=== PATIENT | female | born 1965 | race Two or more races ===

== ENCOUNTER 2020-11-23 01:11 | Emergency (ER) | payer SELFPAY ==
[~2020-11-23] VITALS: Ht 172.7 cm; Wt 81.6 kg
[2020-11-23 01:13] VITALS: BP 175/67
== END 2020-11-23 02:32 | disposition left against medical advice (07) ==
LOC: ER 01:14
DX: R10.9 Unspecified abdominal pain (principal); M54.9 Dorsalgia, unspecified; R11.0 Nausea; K59.00 Constipation, unspecified; Z53.21 Procedure and treatment not carried out due to patient leaving prior to being seen by health care provider

== ENCOUNTER 2022-02-15 12:41 | Emergency (ER) | payer OTHER ==
[~2022-02-15] VITALS: Ht 172.7 cm; Wt 86.3 kg
[~2022-02-15 12:41] MED LIST: ASPI1CHW15 PO; ATOR20TA50 PO; CLOP75TA28 PO; LISI-275 PO; MET25T PO
[2022-02-15] MEDS ORDERED: OXYMETAZOLINE HCL 0.05 % NASAL SPRAY 15ML EACHNOSTRI ONE (13:30)
[2022-02-15 13:49] LABS: Basophils # (auto) 0.1 10 ^3/uL (0-0.2); Basophils % (auto) 0.6 % (0.0-2.0); Eosinophils # (auto) 0.2 10 ^3/uL (0-0.8); Hematocrit 49.5 % (36.0-46.0); Hemoglobin 15.8 g/dL (12.2-16.2); Lymphocytes % (auto) 17.1 % (10.0-50.0); Mean Corpuscular Hgb Conc. 31.8 g/dL (32.0-36.0); Mean Corpuscular Volume 91.1 fL (80.0-100.0); Monocytes # (auto) 0.7 10 ^3/uL (0-1.3); Monocytes % (auto) 5.6 % (0.0-12.0); Neutrophils # (auto) 8.7 10 ^3/uL (1.6-8.6); Neutrophils % (auto) 74.7 % (37.0-80.0); Red Blood Cells 5.43 10^6/uL (4.0-5.20); Red Cell Distribution Width 14.6 % (11.8-14.3); White Blood Cell 11.6 10^3/uL (4.4-10.8)
[2022-02-15 14:09] LABS: BUN/Creatinine Ratio 24.2; Calcium 8.7 mg/dL (8.5-10.1); Potassium 4.3 mmol/L (3.5-5.1)
[2022-02-15 14:46] VITALS: BP 126/75
[2022-02-15] MEDS ORDERED: AMOX-277 PO (15:01)
== END 2022-02-15 14:55 | disposition home or self-care (01) ==
LOC: ER 12:41
DX: R04.0 Epistaxis (principal); H66.92 Otitis media, unspecified, left ear; I10 Essential (primary) hypertension; E78.5 Hyperlipidemia, unspecified; F17.210 Nicotine dependence, cigarettes, uncomplicated; Z98.61 Coronary angioplasty status; Z90.89 Acquired absence of other organs
CPT/HCPCS: 36415; 80048; 85025; 85610

== ENCOUNTER 2022-02-15 19:45 | Emergency (ER) | payer OTHER ==
[~2022-02-15 19:45] MED LIST changes: +AMOX-277 PO
== END 2022-02-15 22:03 | disposition left against medical advice (07) ==
LOC: ER 19:45
DX: R04.0 Epistaxis (principal); Z53.21 Procedure and treatment not carried out due to patient leaving prior to being seen by health care provider

== ENCOUNTER 2022-02-16 05:56 | Emergency (ER) | payer OTHER | END 2022-02-16 06:13 | disposition left against medical advice (07) | LOC: ER 05:56 | DX: R04.0 Epistaxis (principal); Z53.21 Procedure and treatment not carried out due to patient leaving prior to being seen by health care provider ==

== ENCOUNTER 2023-03-16 06:06 | Inpatient (IN) | payer BC, OTHER ==
[~2023-03-16] VITALS: Ht 172.7 cm; Wt 95.0 kg
[~2023-03-16 06:06] MED LIST changes: -AMOX-277 PO; +AMOX875T4 PO; +ASPI-736 PO; -ASPI1CHW15 PO
[2023-03-16 06:39] LABS: Basophils # (auto) 0 10 ^3/uL (0-0.2); Basophils % (auto) 0.3 % (0.0-2.0); Eosinophils # (auto) 0.2 10 ^3/uL (0-0.8); Eosinophils % (auto) 1.5 % (0.0-7.0); Hematocrit 51.8 % (36.0-46.0); Hemoglobin 17.1 g/dL (12.2-16.2); Lymphocytes # (auto) 1.8 10 ^3/uL (0.4-5.4); Lymphocytes % (auto) 13.6 % (10.0-50.0); Mean Corpuscular Hemoglobin 29.6 pg (28.0-32.0); Mean Corpuscular Volume 89.5 fL (80.0-100.0); Monocytes # (auto) 0.7 10 ^3/uL (0-1.3); Monocytes % (auto) 5.4 % (0.0-12.0); Neutrophils # (auto) 10.4 10 ^3/uL (1.6-8.6); Neutrophils % (auto) 79.2 % (37.0-80.0); Red Blood Cells 5.79 10^6/uL (4.0-5.20); Red Cell Distribution Width 14.5 % (11.8-14.3); White Blood Cell 13.1 10^3/uL (4.4-10.8)
[2023-03-16 06:43] LABS: INR 1.02 (0.9-1.15); Partial Thromboplastin Time 29.7 SEC (24.5-34.5); Prothrombin Time 10.7 sec (9.3-11.8)
[2023-03-16 06:57] LABS: Alanine Aminotransferase 18 U/L (7-40); Albumin 4.3 g/dL (3.2-4.8); Alkaline Phosphatase 140 U/L (46-116); Anion Gap 8.8 (5-15); Aspartate Aminotransferase < 8 U/L (13-40); BUN/Creatinine Ratio 17.7 (10.0-20.0); Blood Urea Nitrogen 14 mg/dL (9-23); Calcium 9.7 mg/dL (8.7-10.4); Carbon Dioxide 25.2 mmol/L (20-30); Chloride 105 mmol/L (98-107); Glucose 138 mg/dL (74-106); Magnesium 1.9 mg/dL (1.6-2.6); Potassium 3.8 mmol/L (3.5-5.1); Sodium 139 mmol/L (136-145)
[2023-03-16 06:58] LABS: Bilirubin, Total 0.4 mg/dL (0.2-1.0)
[2023-03-16] MEDS ORDERED: DICYCLOMINE HCL (10MG/ML) 2 ML AMPULE IM ONE (09:00)
[2023-03-16] MEDS ORDERED: ONDANSETRON ODT 4 MG TAB PO ONE (09:00)
[2023-03-16] MEDS ORDERED: KETOROLAC TROMETH 60MG/2ML VIAL IM ONE (09:00)
[2023-03-16] MEDS ORDERED: PIPERACILLIN-TAZO 4.5GM 100 ML IV ONE (09:30)
[2023-03-16 10:38] LABS: Urine Bacteria FEW /hpf (None Seen); Urine Blood 1+ /uL (Negative); Urine Clarity Clear (Clear); Urine Color Yellow (Yellow); Urine Protein, UAD TRACE (Negative); Urine Urobilinogen Normal (Negative); Urine WBC <1 /hpf (0 - 5); Urine pH 6.5 (5.0-8.0)
[2023-03-16] MEDS ORDERED: METOPROLOL SUCCINATE XL 50 MG TAB PO ONE (11:00)
[2023-03-16] MEDS ORDERED: ASPirin-EC 81 mg tab PO ONE (11:00)
[2023-03-16] MEDS ORDERED: LISINOPRIL 5 MG TAB PO ONE (11:00)
[2023-03-16] MEDS ORDERED: PANTOPRAZOLE 40 MG TAB PO ONE (11:00)
[2023-03-16] MEDS ORDERED: metroNIDAZOLE 500MG/100ML 100 ML IV ONE (11:00)
[2023-03-16] MEDS ORDERED: cefTRIAXone 1GM/50ML D5W 50 ML IV ONE (11:00)
[2023-03-16 11:08] VITALS: PULSE 54; RESP 12; O2SAT 97
[2023-03-16] MEDS ORDERED: ONDANSETRON HCL 4 MG/2 ML VIAL IV PRN (11:30)
[2023-03-16] MEDS: D5W/SOD CHL 0.45% 1,000 ML IV SCH (12:49)
[2023-03-16] MEDS: ACETAMINOPHEN 325 MG TAB PO PRN ×2 (15:01→20:25)
[2023-03-16] MEDS: metroNIDAZOLE 500MG/100ML 100 ML IV SCH ×2 (15:11→21:30)
[2023-03-16] MEDS ORDERED: ATOR20TA PO (19:17)
[2023-03-16 19:18] VITALS: BP_SYST 133; BP_SYST 139; BP_DIAS 69; PULSE 67; PULSE 69; RESP 18; RESP 20; TEMP 97.8; O2SAT 0; O2SAT 95
[2023-03-16 19:34] VITALS: BP 133/69; PULSE 69; RESP 18; TEMP 97.9; O2SAT 95
[2023-03-16 20:00] VITALS: PULSE 67; RESP 18; O2SAT 95
[2023-03-16 23:44] VITALS: BP 118/61; PULSE 67; RESP 18; TEMP 97.9; O2SAT 93
[2023-03-17 05:00] VITALS: BP 115/69; PULSE 85; RESP 18; TEMP 98.2; O2SAT 92
[2023-03-17] MEDS: metroNIDAZOLE 500MG/100ML 100 ML IV SCH ×3 (05:30→21:19)
[2023-03-17] MEDS: D5W/SOD CHL 0.45% 1,000 ML IV SCH ×2 (06:09→14:29)
[2023-03-17] MEDS: ACETAMINOPHEN 325 MG TAB PO PRN (06:15)
[2023-03-17 06:36] LABS: Basophils # (auto) 0 10 ^3/uL (0-0.2); Basophils % (auto) 0.4 % (0.0-2.0); Eosinophils # (auto) 0.3 10 ^3/uL (0-0.8); Eosinophils % (auto) 3.4 % (0.0-7.0); Hematocrit 49.1 % (36.0-46.0); Lymphocytes # (auto) 1.7 10 ^3/uL (0.4-5.4); Lymphocytes % (auto) 18.2 % (10.0-50.0); Mean Corpuscular Hemoglobin 29.8 pg (28.0-32.0); Mean Corpuscular Hgb Conc. 32.6 g/dL (32.0-36.0); Mean Corpuscular Volume 91.4 fL (80.0-100.0); Monocytes # (auto) 0.7 10 ^3/uL (0-1.3); Monocytes % (auto) 7.2 % (0.0-12.0); Neutrophils # (auto) 6.8 10 ^3/uL (1.6-8.6); Neutrophils % (auto) 70.8 % (37.0-80.0); Nucleated Red Blood Cells % 0.1 %; Red Blood Cells 5.37 10^6/uL (4.0-5.20); Red Cell Distribution Width 15.1 % (11.8-14.3); White Blood Cell 9.6 10^3/uL (4.4-10.8)
[2023-03-17 06:47] LABS: Alanine Aminotransferase 16 U/L (7-40); Albumin 3.6 g/dL (3.2-4.8); Alkaline Phosphatase 117 U/L (46-116); Aspartate Aminotransferase 15 U/L (13-40); BUN/Creatinine Ratio 15.3 (10.0-20.0); Blood Urea Nitrogen 11 mg/dL (9-23); Calcium 8.7 mg/dL (8.7-10.4); Chloride 105 mmol/L (98-107); Glucose 114 mg/dL (74-106); Magnesium 1.7 mg/dL (1.6-2.6); Potassium 3.5 mmol/L (3.5-5.1); Sodium 137 mmol/L (136-145)
[2023-03-17 06:48] LABS: Bilirubin, Total 0.4 mg/dL (0.2-1.0); Total Protein 6.1 g/dL (5.7-8.2)
[2023-03-17 08:00] VITALS: PULSE 74; PULSE 90; RESP 17; O2SAT 96
[2023-03-17] MEDS: cefTRIAXone 1GM/50ML D5W 50 ML IV SCH (09:09)
[2023-03-17] MEDS: PANTOPRAZOLE 40 MG/10 ML VIAL INJ IV SCH (09:10)
[2023-03-17] MEDS: ASPirin-EC 81 mg tab PO SCH ×2 (09:10→09:13)
[2023-03-17] MEDS: METOPROLOL SUCCINATE XL 50 MG TAB PO SCH (09:11)
[2023-03-17] MEDS: LISINOPRIL 5 MG TAB PO SCH (09:11)
[2023-03-17 09:16] VITALS: BP 136/87; PULSE 74; RESP 14; TEMP 98.3; O2SAT 96
[2023-03-17 12:56] VITALS: BP 146/66; PULSE 63; RESP 14; TEMP 98.4; O2SAT 94
[2023-03-17 16:58] VITALS: BP 141/85; PULSE 78; RESP 18; TEMP 98.6; O2SAT 94
[2023-03-17 20:00] VITALS: PULSE 74; PULSE 90; RESP 17; O2SAT 96
[2023-03-18] MEDS: D5W/SOD CHL 0.45% 1,000 ML IV SCH ×2 (03:22→14:00)
[2023-03-18 04:28] VITALS: BP 134/77; PULSE 91; RESP 18; TEMP 98.5; O2SAT 94
[2023-03-18 05:40] LABS: Basophils # (auto) 0 10 ^3/uL (0-0.2); Basophils % (auto) 0.4 % (0.0-2.0); Eosinophils # (auto) 0.3 10 ^3/uL (0-0.8); Eosinophils % (auto) 3.8 % (0.0-7.0); Hemoglobin 16.4 g/dL (12.2-16.2); Lymphocytes # (auto) 1.5 10 ^3/uL (0.4-5.4); Lymphocytes % (auto) 18.8 % (10.0-50.0); Mean Corpuscular Hemoglobin 29.5 pg (28.0-32.0); Mean Corpuscular Hgb Conc. 32.7 g/dL (32.0-36.0); Mean Corpuscular Volume 90.1 fL (80.0-100.0); Monocytes # (auto) 0.6 10 ^3/uL (0-1.3); Monocytes % (auto) 7.3 % (0.0-12.0); Neutrophils # (auto) 5.4 10 ^3/uL (1.6-8.6); Neutrophils % (auto) 69.7 % (37.0-80.0); Nucleated Red Blood Cells % 0.1 %; Red Blood Cells 5.55 10^6/uL (4.0-5.20); Red Cell Distribution Width 14.8 % (11.8-14.3); White Blood Cell 7.8 10^3/uL (4.4-10.8)
[2023-03-18 05:47] LABS: Alanine Aminotransferase 13 U/L (7-40); Albumin 3.8 g/dL (3.2-4.8); Alkaline Phosphatase 110 U/L (46-116); Anion Gap 4.5 (5-15); Aspartate Aminotransferase 17 U/L (13-40); BUN/Creatinine Ratio 11.3 (10.0-20.0); Bilirubin, Total 0.4 mg/dL (0.2-1.0); Blood Urea Nitrogen 8 mg/dL (9-23); Calcium 8.8 mg/dL (8.5-10.1); Carbon Dioxide 28.5 mmol/L (20-30); Chloride 106 mmol/L (98-107); Glucose 122 mg/dL (74-106); Potassium 4.2 mmol/L (3.5-5.1); Sodium 139 mmol/L (136-145); Total Protein 6.5 g/dL (5.7-8.2)
[2023-03-18] MEDS: metroNIDAZOLE 500MG/100ML 100 ML IV SCH ×3 (06:30→21:33)
[2023-03-18 08:00] VITALS: PULSE 91; RESP 18; O2SAT 96
[2023-03-18 09:00] VITALS: BP 143/86; PULSE 72; RESP 18; TEMP 98; O2SAT 93
[2023-03-18] MEDS: cefTRIAXone 1GM/50ML D5W 50 ML IV SCH (09:00)
[2023-03-18] MEDS ORDERED: ceFAZolin 1GM/50ML 100 ML IV ONE (09:51)
[2023-03-18] MEDS: METOPROLOL SUCCINATE XL 50 MG TAB PO SCH (10:00)
[2023-03-18] MEDS: LISINOPRIL 5 MG TAB PO SCH (10:00)
[2023-03-18] MEDS: PANTOPRAZOLE 40 MG/10 ML VIAL INJ IV SCH (10:00)
[2023-03-18] MEDS: ASPirin-EC 81 mg tab PO SCH (10:00)
[2023-03-18] MEDS ORDERED: BUPIVACAINE 0.25% INJ 50ML VIAL ONE (10:41)
[2023-03-18] MEDS ORDERED: LIDOCAINE W/ EPINEPHRINE 1% 20ML VIAL ONE (10:41)
[2023-03-18] MEDS ORDERED: fentaNYL CITRATE 100 MCG/2 ML VL ONE (11:45)
[2023-03-18] MEDS ORDERED: MIDAZOLAM HCL 2MG/2ML 2ml VIAL (1mg/ml) ONE (11:46)
[2023-03-18] MEDS ORDERED: LIDOCAINE 2% (LOCAL ANESTH.) PF 5ml SDV ONE ×2 (11:47→13:51)
[2023-03-18] MEDS ORDERED: ONDANSETRON HCL 4 MG/2 ML VIAL ONE ×2 (11:47→13:51)
[2023-03-18] MEDS ORDERED: ROCURONIUM 10MG/ML 10ML VIAL IV ONE (11:48)
[2023-03-18] MEDS ORDERED: PROPOFOL 10 MG/ML 20 ML IV ONE ×2 (11:48→13:51)
[2023-03-18] MEDS ORDERED: HYDROmorphone HCL 2 MG/ML VL/or syr IV PRN ×2 (13:15)
[2023-03-18] MEDS ORDERED: ONDANSETRON HCL 4 MG/2 ML VIAL IV PRN (13:15)
[2023-03-18] MEDS ORDERED: MEPERIDINE HCL (25 MG/ML) 1ML VIAL IM PRN (13:30)
[2023-03-18 15:30] LABS: Basophils # (auto) 0 10 ^3/uL (0-0.2); Basophils % (auto) 0.2 % (0.0-2.0); Eosinophils # (auto) 0.1 10 ^3/uL (0-0.8); Eosinophils % (auto) 0.6 % (0.0-7.0); Hematocrit 50.1 % (36.0-46.0); Hemoglobin 16.2 g/dL (12.2-16.2); Lymphocytes % (auto) 6.7 % (10.0-50.0); Mean Corpuscular Hemoglobin 29.3 pg (28.0-32.0); Mean Corpuscular Hgb Conc. 32.3 g/dL (32.0-36.0); Mean Corpuscular Volume 90.5 fL (80.0-100.0); Monocytes # (auto) 0.7 10 ^3/uL (0-1.3); Monocytes % (auto) 4.9 % (0.0-12.0); Neutrophils # (auto) 12.8 10 ^3/uL (1.6-8.6); Neutrophils % (auto) 87.6 % (37.0-80.0); Nucleated Red Blood Cells % 0.1 %; Red Blood Cells 5.54 10^6/uL (4.0-5.20); Red Cell Distribution Width 15.1 % (11.8-14.3); White Blood Cell 14.6 10^3/uL (4.4-10.8)
[2023-03-18 17:00] VITALS: BP 140/83; PULSE 84; RESP 16; TEMP 98.3; O2SAT 92
[2023-03-18] MEDS ORDERED: GLYCOPYRROLATE 0.2 MG/ML 1ML VIAL IV ONE (18:59)
[2023-03-18] MEDS ORDERED: NEOSTIGMINE 1 MG/ML INJ (10mg/10ML VIAL) IV ONE (18:59)
[2023-03-18 20:00] VITALS: PULSE 91; RESP 18; O2SAT 96
[2023-03-18] MEDS: ACETAMINOPHEN 325 MG TAB PO PRN (21:38)
[2023-03-18 22:00] VITALS: BP 145/78; PULSE 95; RESP 19; TEMP 98.4; O2SAT 92
[2023-03-19] VITALS (7 sets, daily range): BP systolic 121–147; BP diastolic 62–77; PULSE 88–100; RESP 16–19; TEMP 97.6–100.4; O2SAT 90–92
[2023-03-19] MEDS: HYDROmorphone HCL 2 MG/ML VL/or syr IV PRN ×3 (01:54→19:14)
[2023-03-19] MEDS: metroNIDAZOLE 500MG/100ML 100 ML IV SCH ×3 (05:19→22:13)
[2023-03-19 07:55] LABS: Basophils # (auto) 0 10 ^3/uL (0-0.2); Basophils % (auto) 0.3 % (0.0-2.0); Eosinophils # (auto) 0.1 10 ^3/uL (0-0.8); Eosinophils % (auto) 0.9 % (0.0-7.0); Hematocrit 48.5 % (36.0-46.0); Hemoglobin 15.7 g/dL (12.2-16.2); Lymphocytes # (auto) 1.3 10 ^3/uL (0.4-5.4); Lymphocytes % (auto) 10.4 % (10.0-50.0); Mean Corpuscular Hemoglobin 29.2 pg (28.0-32.0); Mean Corpuscular Hgb Conc. 32.4 g/dL (32.0-36.0); Mean Corpuscular Volume 90.4 fL (80.0-100.0); Monocytes % (auto) 7.8 % (0.0-12.0); Neutrophils % (auto) 80.6 % (37.0-80.0); Red Blood Cells 5.36 10^6/uL (4.0-5.20); Red Cell Distribution Width 14.9 % (11.8-14.3); White Blood Cell 12.4 10^3/uL (4.4-10.8)
[2023-03-19] MEDS: cefTRIAXone 1GM/50ML D5W 50 ML IV SCH (08:06)
[2023-03-19 08:07] LABS: Alanine Aminotransferase 31 U/L (7-40); Albumin 3.6 g/dL (3.2-4.8); Alkaline Phosphatase 101 U/L (46-116); Aspartate Aminotransferase 38 U/L (13-40); BUN/Creatinine Ratio 9.2 (10.0-20.0); Blood Urea Nitrogen 6 mg/dL (9-23); Calcium 8.5 mg/dL (8.5-10.1); Chloride 107 mmol/L (98-107); Glucose 142 mg/dL (74-106); Potassium 3.8 mmol/L (3.5-5.1); Sodium 138 mmol/L (136-145)
[2023-03-19 08:08] LABS: Bilirubin, Total 0.4 mg/dL (0.2-1.0); Total Protein 6.2 g/dL (5.7-8.2)
[2023-03-19] MEDS: PANTOPRAZOLE 40 MG/10 ML VIAL INJ IV SCH (08:12)
[2023-03-19] MEDS: ASPirin-EC 81 mg tab PO SCH (08:12)
[2023-03-19] MEDS ORDERED: LISINOPRIL 5 MG TAB PO SCH (10:00)
[2023-03-19] MEDS: METOPROLOL SUCCINATE XL 50 MG TAB PO SCH (13:01)
[2023-03-19] MEDS: D5W/SOD CHL 0.45% 1,000 ML IV SCH ×2 (18:23)
[2023-03-19] MEDS ORDERED: AZITHROMYCIN 500MG/ 250ML 250 ML IV ONE (19:15)
[2023-03-19] MEDS ORDERED: cefTRIAXone 1GM/50ML D5W 50 ML IV ONE (19:15)
[2023-03-19] MEDS ORDERED: FUROSEMIDE 40 MG/4 ML VIAL IV ONE (21:15)
[2023-03-20] VITALS (7 sets, daily range): BP systolic 126–137; BP diastolic 61–89; PULSE 91–103; RESP 15–20; TEMP 97.6–98.9; O2SAT 90–94
[2023-03-20 05:25] LABS: Chloride 105 mmol/L (98-107); Potassium 3.6 mmol/L (3.5-5.1); Sodium 139 mmol/L (136-145)
[2023-03-20 05:26] LABS: Anion Gap 5.2 (5-15); Carbon Dioxide 28.8 mmol/L (20-30)
[2023-03-20 05:27] LABS: Calcium 8.8 mg/dL (8.7-10.4)
[2023-03-20 05:32] LABS: BUN/Creatinine Ratio 10.2 (10.0-20.0); Blood Urea Nitrogen 5 mg/dL (9-23); Glucose 122 mg/dL (74-106)
[2023-03-20 05:33] LABS: Magnesium 1.8 mg/dL (1.6-2.6)
[2023-03-20] MEDS: metroNIDAZOLE 500MG/100ML 100 ML IV SCH ×3 (05:52→21:31)
[2023-03-20 06:10] LABS: Basophils # (auto) 0 10 ^3/uL (0-0.2); Basophils % (auto) 0.4 % (0.0-2.0); Eosinophils # (auto) 0.3 10 ^3/uL (0-0.8); Eosinophils % (auto) 2.2 % (0.0-7.0); Hematocrit 48.3 % (36.0-46.0); Hemoglobin 15.5 g/dL (12.2-16.2); Lymphocytes # (auto) 1.6 10 ^3/uL (0.4-5.4); Lymphocytes % (auto) 12.7 % (10.0-50.0); Mean Corpuscular Hemoglobin 28.9 pg (28.0-32.0); Mean Corpuscular Volume 90.3 fL (80.0-100.0); Monocytes % (auto) 8.3 % (0.0-12.0); Neutrophils # (auto) 9.6 10 ^3/uL (1.6-8.6); Neutrophils % (auto) 76.4 % (37.0-80.0); Red Blood Cells 5.35 10^6/uL (4.0-5.20); Red Cell Distribution Width 15.5 % (11.8-14.3); White Blood Cell 12.6 10^3/uL (4.4-10.8)
[2023-03-20] MEDS: PANTOPRAZOLE 40 MG/10 ML VIAL INJ IV SCH ×2 (09:28→09:51)
[2023-03-20] MEDS: cefTRIAXone 1GM/50ML D5W 50 ML IV SCH (09:51)
[2023-03-20] MEDS: METOPROLOL SUCCINATE XL 50 MG TAB PO SCH (09:52)
[2023-03-20] MEDS: LISINOPRIL 10 MG TAB PO SCH (09:52)
[2023-03-20] MEDS: ASPirin-EC 81 mg tab PO SCH (09:52)
[2023-03-20] MEDS ORDERED: AZITHROMYCIN 500MG/ 250ML 250 ML IV SCH (10:00)
[2023-03-20] MEDS ORDERED: ALPRAZolam 0.25 MG TAB PO PRN ×2 (10:00→11:00)
[2023-03-20] MEDS: NICOTINE 14 MG/24HR TOPICAL PATCH TD SCH (10:09)
[2023-03-20] MEDS ORDERED: DOXYCYCLINE 100 MG TAB/CAP PO ONE (15:00)
[2023-03-20] MEDS ORDERED: IOHEXOL 300 MG/ML 100ML BOTTLE IJ ONE (17:19)
[2023-03-20 18:14] LABS: Urine Bacteria NONE SEEN /hpf (None Seen); Urine Blood 2+ /uL (Negative); Urine Budding Yeast FEW /hpf (None Seen); Urine Clarity HAZY (Clear); Urine Color Yellow (Yellow); Urine Mucus FEW (None Seen); Urine Protein, UAD TRACE (Negative); Urine Specific Gravity 1.017 (1.001-1.035); Urine Urobilinogen Normal (Negative); Urine WBC 103 /hpf (0 - 5)
[2023-03-20] MEDS: DOXYCYCLINE 100 MG TAB/CAP PO SCH (21:31)
[2023-03-21 05:00] VITALS: BP 139/74; PULSE 106; RESP 18; TEMP 98.1; O2SAT 94
[2023-03-21] MEDS: metroNIDAZOLE 500MG/100ML 100 ML IV SCH ×2 (05:45→14:00)
[2023-03-21 07:38] LABS: Basophils # (auto) 0 10 ^3/uL (0-0.2); Basophils % (auto) 0.3 % (0.0-2.0); Eosinophils # (auto) 0.4 10 ^3/uL (0-0.8); Eosinophils % (auto) 3.5 % (0.0-7.0); Hematocrit 48.4 % (36.0-46.0); Hemoglobin 15.4 g/dL (12.2-16.2); Lymphocytes # (auto) 1.4 10 ^3/uL (0.4-5.4); Lymphocytes % (auto) 11.6 % (10.0-50.0); Mean Corpuscular Hemoglobin 28.6 pg (28.0-32.0); Mean Corpuscular Hgb Conc. 31.9 g/dL (32.0-36.0); Mean Corpuscular Volume 89.6 fL (80.0-100.0); Monocytes # (auto) 0.8 10 ^3/uL (0-1.3); Monocytes % (auto) 6.6 % (0.0-12.0); Neutrophils # (auto) 9.1 10 ^3/uL (1.6-8.6); Red Blood Cells 5.39 10^6/uL (4.0-5.20); White Blood Cell 11.7 10^3/uL (4.4-10.8)
[2023-03-21 08:47] LABS: Alanine Aminotransferase 37 U/L (7-40); Albumin 3.5 g/dL (3.2-4.8); Alkaline Phosphatase 101 U/L (46-116); Anion Gap 7.9 (5-15); Aspartate Aminotransferase 24 U/L (13-40); BUN/Creatinine Ratio 17.3 (10.0-20.0); Bilirubin, Total 0.3 mg/dL (0.2-1.0); Blood Urea Nitrogen 9 mg/dL (9-23); Calcium 8.8 mg/dL (8.5-10.1); Carbon Dioxide 26.1 mmol/L (20-30); Chloride 106 mmol/L (98-107); Glucose 122 mg/dL (74-106); Magnesium 1.8 mg/dL (1.6-2.6); Potassium 4.1 mmol/L (3.5-5.1); Sodium 140 mmol/L (136-145)
[2023-03-21 08:48] LABS: Total Protein 5.8 g/dL (5.7-8.2)
[2023-03-21 09:00] VITALS: BP 144/80; PULSE 103; RESP 18; TEMP 98.2; O2SAT 95
[2023-03-21] MEDS: cefTRIAXone 1GM/50ML D5W 50 ML IV SCH (09:46)
[2023-03-21] MEDS: ASPirin-EC 81 mg tab PO SCH (09:46)
[2023-03-21] MEDS: PANTOPRAZOLE 40 MG/10 ML VIAL INJ IV SCH (09:46)
[2023-03-21] MEDS: METOPROLOL SUCCINATE XL 50 MG TAB PO SCH (09:47)
[2023-03-21] MEDS: DOXYCYCLINE 100 MG TAB/CAP PO SCH (09:47)
[2023-03-21] MEDS: LISINOPRIL 10 MG TAB PO SCH (09:49)
[2023-03-21] MEDS: NICOTINE 14 MG/24HR TOPICAL PATCH TD SCH (09:50)
[2023-03-21 13:00] VITALS: BP 143/75; PULSE 96; RESP 18; TEMP 97.7; O2SAT 95
[2023-03-21 17:00] VITALS: BP 121/79; PULSE 91; RESP 18; TEMP 98; O2SAT 91
[2023-03-21] MEDS ORDERED: NAP500T PO (17:34)
[2023-03-21] MEDS ORDERED: DOCU-265 PO (17:34)
[2023-03-21] MEDS ORDERED: CEPH250C PO (17:34)
[2023-03-21 18:06] VITALS: BP 143/75; PULSE 96; RESP 18; TEMP 97.7; O2SAT 95
== END 2023-03-21 19:00 | disposition home or self-care (01) | DRG 417 ==
LOC: ER 06:06 → TELE 10:47 → TELE-CENTR 18:55 → CENTRAL 03-20 04:55
PROVIDERS: ADMIT Internal Medicine Geriatric Medicine; ATTEND Student in an Organized Health Care Education/Training Program
PROC: 0FT44ZZ Resection of Gallbladder, Percutaneous Endoscopic Approach (ICD-10-PCS; principal; 2023-03-18 11:42)
DX: K80.00 Calculus of gallbladder with acute cholecystitis without obstruction (principal); J18.9 Pneumonia, unspecified organism; N39.0 Urinary tract infection, site not specified; E78.5 Hyperlipidemia, unspecified; F17.210 Nicotine dependence, cigarettes, uncomplicated; I10 Essential (primary) hypertension; I25.10 Atherosclerotic heart disease of native coronary artery without angina pectoris; E11.9 Type 2 diabetes mellitus without complications; K76.0 Fatty (change of) liver, not elsewhere classified; Z88.8 Allergy status to other drugs, medicaments and biological substances; Z80.0 Family history of malignant neoplasm of digestive organs; Z82.3 Family history of stroke; Z82.49 Family history of ischemic heart disease and other diseases of the circulatory system; Z83.3 Family history of diabetes mellitus; Z98.61 Coronary angioplasty status; I25.2 Old myocardial infarction; L40.9 Psoriasis, unspecified; F41.9 Anxiety disorder, unspecified
CPT/HCPCS: 36415; 71045; 74177; 76705; 78226; 80048; 80053; 81001; 82150; 82247; 82962; 83036; 83605; 83690; 83735; 83880; 84484; 85025; 85610; 85730; 87040; 93005; 93306; 96365; 96367; 96368; 96372; C9113; G0378; J0690; J0696; J1885; J2001; J2250; J2405; J2543; J2704; J3490; Q0162

== ENCOUNTER 2023-05-27 08:04 | Emergency (ER) | payer BC ==
[~2023-05-27 08:04] MED LIST changes: +ATOR20TA PO; +CEPH250C PO; +DOCU-265 PO; +NAP500T PO
== END 2023-05-27 08:26 | disposition left against medical advice (07) ==
LOC: ER 08:04 → EDBD 08:04 → ER 08:14
DX: R10.9 Unspecified abdominal pain (principal); Z53.21 Procedure and treatment not carried out due to patient leaving prior to being seen by health care provider